=== PATIENT | female | born 1955 | race Caucasian/White ===

== ENCOUNTER 2016-09-17 10:42 | Day surgery (SDC) | payer BC ==
[~2016-09-17] VITALS: Ht 168.9 cm; Wt 80.6 kg
[2016-09-17 11:31] VITALS: Ht 168.9 cm; Wt 80.6 kg
[2016-09-17 12:52] VITALS: BP 113/69; PULSE 60; RESP 20
[2016-09-17] MEDS ORDERED: FENTAnyl 50 MCG/ML VIAL ONE (14:30)
[2016-09-17] MEDS ORDERED: MIDAZOLAM 1 MG/ML 2 ML INJ ONE ×2 (14:30)
[2016-09-17 15:20] VITALS: BP 102/66; PULSE 58; RESP 18
--- NOTE | 2016-09-17 15:42 | GILP ---
DATE OF PROCEDURE: 09/17/2016 NAME OF PROCEDURES: Colonoscopy and biopsy. SURGEON: Megan Yañez MD PREOPERATIVE DIAGNOSIS: Screening colonoscopy. POSTOPERATIVE DIAGNOSES: 1. Colonoscopy all the way to the cecum. 2. Mild melanosis coli. 3. Two right colon polyps were removed using the biopsy forceps. 4. Internal hemorrhoids. INDICATION FOR THE PROCEDURE: Ms. Talya Franks is a 61-year-old female patient who was scheduled for screening colonoscopy. The procedure and possible complications are well explained to the patient. She understood and cons ented to the procedure. DESCRIPTION OF PROCEDURE: Under the influence of fentanyl and Versed, the colonoscope was carefully introduced in the rectum and under direct vision; it was advanced all the way to the cecum. FINDINGS: The patient had 2 small right colon polyps and they were removed using the biopsy forceps . The patient was noted to have mild melanosis coli. She also had internal hemorrhoids. She tolerated the procedure very well and there was no complication from the procedure. At the end of the procedures, she was awake with stable vital signs and she was discharged home to the care of her family. IMPRESSION: 1. Colonoscopy all the way to the cecum. 2. Two small right colon polyps were removed using the biopsy forceps. 3. Mild melanosis coli. 4. Internal hemorrhoids. PLAN: 1. Await histopathology report. 2. Depending upon the biopsy report the next screening colonoscopy will be from 5 to 10 years. Dictated By: MEGAN BARLOW/ABHIJIT Conf#: [id number] DID#: [id number] CC: MEGAN YAÑEZ MD;*End*
== END 2016-09-17 15:25 | disposition home or self-care (01) ==
LOC: GIL 10:42
PROVIDERS: ATTEND Internal Medicine Gastroenterology
DX: Z12.11 Encounter for screening for malignant neoplasm of colon (principal); K63.89 Other specified diseases of intestine; K64.8 Other hemorrhoids
CPT/HCPCS: 45380; 88305; J2250; J3010; Z7610

== ENCOUNTER 2018-02-19 07:40 | Day surgery (SDC) | END 2018-02-19 14:18 | disposition home or self-care (01) ==